=== PATIENT | male | born 1960 | race Caucasian/White ===

== ENCOUNTER → 2018-04-26 | Day surgery (SDC) | payer BC ==
[2018-04-15 10:06] LABS: BASOPHILS # (AUTO) 0.1 (0.0-0.1); BASOPHILS % 1.1 % (0.0-1.0); EOSINOPHILS # (AUTO) 0.1 (0.0-0.4); EOSINOPHILS % 0.9 % (0.0-6.0); HEMATOCRIT 42.1 % (38.2-49.6); HEMOGLOBIN 14.6 g/dL (14.0-18.0); LYMPHOCYTES # (AUTO) 1.5 (1.0-3.2); LYMPHOCYTES % 28.2 % (18.0-39.1); MEAN CORPUSCULAR HEMOGLOBIN 30.8 pg (28-32); MEAN CORPUSCULAR HGB CONC 34.7 g/dL (31-35); MEAN CORPUSCULAR VOLUME 88.8 fL (81-99); MONOCYTES # (AUTO) 0.6 (0.2-0.8); MONOCYTES % 10.6 % (4.4-11.3); NEUTROPHILS # (AUTO) 3.1 (2.1-6.9); PLATELET COUNT 239 x10e3/uL (140-360); RED BLOOD COUNT 4.74 x10e6/uL (4.3-5.7); RED CELL DISTRIBUTION WIDTH 13.1 % (11.7-14.4)
[2018-04-15 10:20] LABS: INR 1.13; PARTIAL THROMBOPLASTIN TIME 28.5 seconds (23.8-35.5); PROTHROMBIN TIME 13.6 seconds (11.9-14.5)
[2018-04-15 10:29] LABS: ALANINE AMINOTRANSFERASE 67 IU/L (0-55); ALBUMIN 4.2 g/dL (3.5-5.0); ALBUMIN/GLOBULIN RATIO 1.4 (0.8-2.0); ALKALINE PHOSPHATASE 55 IU/L (40-150); ANION GAP 14.4 mmol/L (8-16); BLOOD UREA NITROGEN 14 mg/dL (7-26); BUN/CREATININE RATIO 16 (6-25); CALCIUM 9.5 mg/dL (8.4-10.2); CARBON DIOXIDE 27 mmol/L (22-29); CHLORIDE 101 mmol/L (98-107); CREATININE, SERUM 0.86 mg/dL (0.72-1.25); EST GLOMERULAR FILTRATION RATE > 60 ML/MIN (60-); GLUCOSE 100 mg/dL (74-118); POTASSIUM 4.4 mmol/L (3.5-5.1); SODIUM 138 mmol/L (136-145)
--- NOTE | 2018-04-15 10:58 | Diagnostic Imaging Report ---
PROCEDURE: X-RAY CHEST, TWO VIEWS COMPARISON: None. INDICATIONS: PRE OPERATIVE CHEST X-RAY FOR KIDNEY STONES FINDINGS: LUNGS: No consolidations or edema. PLEURA: No effusions or pneumothorax. HEART \T\ MEDIASTINUM: The heart is within normal size-limits. Mild atherosclerotic calcification of the thoracic aorta. BONES \T\ SOFT TISSUES: No acute findings. CONCLUSION: No acute thoracic abnormality. Dictated by: Tone Avila M.D. on 04/15/2018 at 11:02 Electronically approved by: Tone Avila M.D. on 04/15/2018 at 11:02
[~2018-04-26] MED LIST: ATROPINE SULFATE 1 MG/ML VIAL ONE; CEFOXITIN SOD 1 GM VIAL ONE; DEXAMETHASONE SOD PHOS INJ 4 MG/ML VIAL ONE; FENTANYL CITRATE/PF 100MCG/2 ML INJ ONE; FISH OIL 1,0001 EAC2; LIDOCAINE HCL 2% LOCAL INJ 5 ML SDV VIAL INJ ONE; MACROBID 100 M100 MG PO; MIDAZOLAM HCL 2 MG/2 ML VIAL ONE; ONDANSETRON HCL INJ 2 MG/ML VIAL ONE; PROPOFOL IV EMULSION 10 MG/ML 20 ML VIAL ONE; SEVOFLURANE INHAL SOLN 250 ML PEN BTL ONE; [UNRECOGNIZED DRUG - OTHER]
--- NOTE | 2018-04-26 09:32 | Operative Report ---
DATE OF PROCEDURE: April 26, 2018 PREOPERATIVE DIAGNOSIS: Right kidney stone. POSTOPERATIVE DIAGNOSIS: Right kidney stone. OPERATION PERFORMED: Right extracorporeal shock wave lithotripsy. ANESTHESIA: General. INDICATIONS: This patient is a 57-year-old white male who had back pain. He was not sure which side it was on. A CT scan and a KUB revealed a 9-mm stone in the right lower pole with no evidence of hydronephrosis. For further details, please refer to the history and physical. The procedure was done in the following fashion. DESCRIPTION OF PROCEDURE: The patient was taken to the operating room, placed under general anesthesia within the SLX-T mobile lithotriptor unit. The stone was readily localized in the right lower pole. It subsequently received a total of 3000 shocks at 90 shocks per minute. After 3000 shocks, the stone appeared to be well fragmented. The patient tolerated the procedure well and left the operating room in good condition. My plan at this time is to send him home on Macrobid 100 mg p.o. twice daily, #20. He will strain his urine for stones. The patient is ALLERGIC TO CODEINE and he will be taking Advil at home p.r.n. pain. He will have a return appointment to see me again in 1 week for followup flat plate of the abdomen. Job#: [id number]
== END | disposition home or self-care (01) ==
LOC: OR 06:07
PROVIDERS: ATTEND Urology
DX: N20.0 Calculus of kidney (principal); Z01.810 Encounter for preprocedural cardiovascular examination; Z01.812 Encounter for preprocedural laboratory examination; Z01.818 Encounter for other preprocedural examination; Z88.5 Allergy status to narcotic agent; Z87.891 Personal history of nicotine dependence
CPT/HCPCS: 36415; 50590; 71046; 80053; 85025; 85610; 85730; 93005; J0461; J0694; J1100; J2001; J2250; J2405